=== PATIENT | male | born 1980 | race Caucasian/White ===

== ENCOUNTER 2024-11-30 17:20 | Emergency (ER) | payer BC ==
[~2024-11-30] VITALS: Ht 180.3 cm; Wt 121.0 kg
[2024-11-30 17:29] VITALS: TEMP 97.6
--- NOTE | 2024-11-30 18:07 | ELECTROCARDIOGRAPH REPORT ---
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
--- NOTE | 2024-11-30 18:13 | Physician Documentation ---
History of Present Illness ~ Chief Complaint: Chest Pain Stated Complaint: CP Time Seen by MD: 19:12 HPI This is a 43-year-old male who presents with four days of left-sided intermittent chest pain. He states he has had this previously but over the last few days gotten worse. No exacerbating or relieving factors. He does not smoke but does have history of high blood pressure. He denies history of hyperlipidemia or diabetes. He endorses family history in his father of heart disease. He is taking testosterone. Medication Reconciliation Allergies: Coded Allergies: No Known Allergies (Unverified , 11/30/24) Review of Systems ROS As stated above in the HPI, otherwise all systems are reviewed and negative. Physical Exam Vital Signs: Temperature: 97.6, Source: Temporal, Heart Rate: 109, Respiratory Rate: 18, BP: 166/91, Pulse Oximetry: 96, Weight: 121.000 Oxygen Flow Rate: 0 Physical Exam General: Patient is awake, alert, oriented x4 in no acute distress. Anxious Head: Normocephalic and atraumatic. Eyes: Conjunctival normal. EOMI. PERRL. ENT: Mucous membranes moist. Neck: Supple, trachea is midline. Chest: Clear to auscultation bilaterally without rales, rhonchi, or wheezes. There is no accessory muscle use or retractions. Cardiac: Tachycardic and regular without murmurs, gallops, or rubs. Abd: Soft, nondistended, nontender, with normoactive bowel sounds. No guarding, rebound, or rigidity. Extremities: Normal strength. Normal range of motion. No deformities or edema. No calf tenderness to palpation Progress Results/Orders Results/Orders Completed Orders - HENRY PHAN MD D-Dimer (11/30/24 19:13) Lorazepam Tablet (Ativan Tablet) (11/30/24 20:40) Vital Signs 11/30/24 11/30/24 11/30/24 11/30/24 17:29 19:16 19:26 19:26 Temp 97.6 Pulse 109 104 96 Resp 18 14 18 18 B/P (MAP) 166/91 166/96 (119) 153/97 (115) Pulse Ox 96 98 97 O2 Flow Rate 0 0 0 Laboratory Tests Test 11/30/24 17:27 11/30/24 19:51 White Blood Count 8.0 Red Blood Count 4.63 L Hemoglobin 14.4 Hematocrit 41.8 L Mean Corpuscular Volume 90.3 Mean Corpuscular Hemoglobin 31.1 H Mean Corpuscular Hemoglobin Concent 34.4 Red Cell Distribution Width 14.8 H Platelet Count 175 Mean Platelet Volume 9.8 Neutrophils (%) (Auto) 67.4 Lymphocytes (%) (Auto) 24.2 Monocytes (%) (Auto) 6.6 Eosinophils (%) (Auto) 1.0 Basophils (%) (Auto) 0.8 Neutrophils # (Auto) 5.4 Lymphocytes # (Auto) 1.9 Monocytes # (Auto) 0.5 Eosinophils # (Auto) 0.1 Basophils # (Auto) 0.1 CBC Comment D-Dimer 0.21 D-Dimer Comment Sodium Level 140 Potassium Level 3.8 Chloride Level 105 Carbon Dioxide Level 25.1 Anion Gap 10 Blood Urea Nitrogen 12 Creatinine 0.85 Estimated GFR/1.73 m2 > 90 BUN/Creatinine Ratio 14.1 Glucose Level 104 Calcium Level 8.9 Troponin I High Sensitivity 4 5 Pro-B-Type Natriuretic Peptide < 30 Albumin 4.1 Chemistry Comments Troponin I High Sens Percent Delta 25 Troponin I Hi Sens Absolute Change 1 EKG/XRAY/CT/US/VASC/MRI EKG : Additional Comment EKG interpreted by myself shows time of 17 30, rate 107, sinus tachycardia, normal axis, no ST changes Chest X-Ray : Additional Comments Exam: CHEST,SINGLE VIEW CHEST RADIOGRAPH Indication: CP Technique: DI CHEST,SINGLE VIEW Comparison: None FINDINGS: The cardiac silhouette is unremarkable. The lungs demonstrate left basilar airspace opacities. The pulmonary vasculature is unremarkable. There is no pleural effusion. There is no pneumothorax. IMPRESSION: Left basilar/ retrocardiac airspace opacification. Medical Decision Making Findings Patient presented to the emergency room for evaluation of chest pain as per HPI. Differentials include but are not limited to ACS, pulmonary embolism, aortic pathology, muscle spasm therefore emergent labs and imaging indicated. Labs reassuring for troponins negative x2. D-dimer negative. Symptoms are inconsistent with aortic pathology. Patient is considered low cardiovascular risk with a heart score of two. ER precautions discussed. Departure Disposition: HOME / SELF CARE / HOMELESS Impression: Primary Impression: Chest pain Condition: Stable Discharge Instructions: Nonspecific Chest Pain, Adult Referrals: NO PRIMARY CARE PROVIDER (PCP) Education Educated: Patient Educated regarding: diagnosis, treatment, need for follow up Signature Scribe Signature: No scribe Attestation: The note accurately reflects work and decisions made by me.Henry Phan MD 11/30/24 20:44 WINSOME FUCHS Nov 30, 2024 18:13 HENRY PHAN MD Nov 30, 2024 19:24
[2024-11-30 18:20] LABS: MEAN PLATELET VOLUME 9.8 FL (7.4-10.4); RED CELL DISTRIBUTION WIDTH 14.8 % (11.5-14.5)
[2024-11-30 18:30] LABS: CREATININE 0.85 MG/DL (0.60-1.10); PRO BRAIN NATRIURETIC PEPTIDE < 30 PG/ML (0-125); TOTAL CARBON DIOXIDE 25.1 MMOL/L (24-32); eCRCL 122 ML/MIN; eGFR > 90 ML/MIN
--- NOTE | 2024-11-30 18:31 | RADIOLOGY REPORT ---
CHEST RADIOGRAPH Indication: CP Technique: DI CHEST,SINGLE VIEW Comparison: None FINDINGS: The cardiac silhouette is unremarkable. The lungs demonstrate left basilar airspace opacities. The pu lmonary vasculature is unremarkable. There is no pleural effusion. There is no pneumothorax. IMPRESSION: Left basilar/ retrocardiac airspace opacification.
[2024-11-30 21:05] VITALS: BP 170/91; PULSE 95; RESP 18; O2SAT 98
== END 2024-11-30 21:09 | disposition home or self-care (01) ==
LOC: ER 17:21
DX: R07.89 Other chest pain (principal)
CPT/HCPCS: 36415; 71045; 80048; 83880; 84484; 85025; 85379; 93005; 99285